=== PATIENT | male | born 1990 | race Caucasian/White ===

== ENCOUNTER 2019-08-04 16:22 | Emergency (ER) | payer MEDICAID ==
[~2019-08-04] VITALS: Ht 180.3 cm; Wt 72.6 kg
[2019-08-04 16:42] VITALS: BP_SYST 129
--- NOTE | 2019-08-04 17:10 | NUR ---
Patient to ER bed 08 to gown for evaluation. Side rails up.
--- NOTE | 2019-08-04 17:24 | NUR ---
Pt brought by self, ambulatory , A&Ox4, pt presents to ER with cyst on R lower back , pt states he suposs to have surgery but has not been scheduled , skin pink and warm, pt afebrile.
--- NOTE | 2019-08-04 17:25 | NUR ---
Dr Quezada at bedside examining patient
[2019-08-04] MEDS ORDERED: LIDOCAINE 1% 10 MG/ML, 20 ML MDV INJ ONE (17:30)
[2019-08-04 18:14] VITALS: BP_SYST 124
--- NOTE | 2019-08-04 18:14 | NUR ---
Patient given written and verbal discharge instructions and verbalizes understanding. ER MD discussed with patient the results and treatment provided. Patient in stable condition. ID arm band removed. Patient educated on pain management and to follow up with PMD. Pain Scale 0/10. Opportunity for questions provided and answered. Medication side effect fact sheet provided.
== END 2019-08-04 18:14 | disposition home or self-care (01) ==
LOC: SED 16:22
DX: L72.3 Sebaceous cyst (principal)
CPT/HCPCS: 10060; 99282; J2001

== ENCOUNTER 2019-08-13 15:44 | Emergency (ER) | payer MEDICAID ==
[~2019-08-13] VITALS: Ht 177.8 cm; Wt 77.1 kg
[2019-08-13 15:44] VITALS: BP_SYST 133
== END 2019-08-13 16:30 | disposition home or self-care (01) ==
LOC: SED 15:44
DX: Z48.02 Encounter for removal of sutures (principal)
CPT/HCPCS: 99281

== ENCOUNTER 2023-06-17 00:42 | Emergency (ER) | payer MEDICAID ==
[~2023-06-17] VITALS: Ht 180.3 cm; Wt 72.6 kg
[2023-06-17 00:52] VITALS: BP_SYST 125; PULSE 79; RESP 18; TEMP 98.3; O2SAT 99
[2023-06-17 01:20] VITALS: BP_SYST 116; PULSE 66; RESP 20; TEMP 98; O2SAT 99
== END 2023-06-17 01:17 | disposition home or self-care (01) ==
LOC: SED 00:42
DX: K40.90 Unilateral inguinal hernia, without obstruction or gangrene, not specified as recurrent (principal); Z79.899 Other long term (current) drug therapy
CPT/HCPCS: 99282